=== PATIENT | female | born 1965 | race Caucasian/White ===

== ENCOUNTER 2024-03-07 06:23 | Day surgery (SDC) | payer MEDICAID ==
[~2024-03-07] VITALS: Ht 149.9 cm; Wt 64.1 kg
[2024-03-07] MEDS ORDERED: LIDOCAINE 2% 11 ML JELLY TP ONE (06:24)
[2024-03-07] MEDS ORDERED: LIDOCAINE 4% 50 ML SOLUTION TP ONE (06:24)
[2024-03-07] MEDS ORDERED: BENZOCAINE 20% 50 MCG/SPRAY 57 GM TP ONE (06:24)
[2024-03-07] MEDS ORDERED: HYDR200T38 PO (06:58)
[2024-03-07] MEDS ORDERED: DULO20CA71 PO (06:59)
[2024-03-07] MEDS ORDERED: FERR325T27 PO (06:59)
[2024-03-07] MEDS ORDERED: OMEG100014 PO (06:59)
[2024-03-07] MEDS ORDERED: FLUT16H NASAL (06:59)
[2024-03-07] MEDS ORDERED: OMEP40CA21 PO (06:59)
[2024-03-07] MEDS ORDERED: CELE200 PO (06:59)
[2024-03-07] MEDS ORDERED: MAGN500T11 PO (06:59)
[2024-03-07] MEDS ORDERED: SODIUM CHLORIDE 0.9% 0 ML ONE (07:18)
[2024-03-07] MEDS ORDERED: SODIUM CHLORIDE 0.9% 1,000 ML ONE (07:23)
[2024-03-07] MEDS ORDERED: MIDAZOLAM HCL 2 MG/2 ML VIAL ONE (08:06)
[2024-03-07] MEDS ORDERED: FentaNYL CITRATE PF 100 MCG/2 ML VIAL ONE (08:06)
[2024-03-07] MEDS: SODIUM CHLORIDE 0.9% 1,000 ML IV ONE (08:26)
[2024-03-07 09:30] VITALS: PULSE 65; RESP 18; O2SAT 100
[2024-03-07] MEDS ORDERED: MethylPREDNISolone SOD SUCC 125 MG/2 ML VIAL ONE (09:54)
[2024-03-07] MEDS: MethylPREDNISolone SOD SUCC 125 MG/2 ML VIAL IVP ONE (10:14)
== END 2024-03-07 12:15 | disposition home or self-care (01) ==
LOC: SURGERY 06:23
PROVIDERS: ATTEND Internal Medicine Critical Care Medicine
DX: R05.3 Chronic cough (principal); R06.2 Wheezing; R49.0 Dysphonia; R04.2 Hemoptysis; J38.4 Edema of larynx; B37.0 Candidal stomatitis; Z98.890 Other specified postprocedural states; Z88.0 Allergy status to penicillin; Z88.2 Allergy status to sulfonamides; Z88.5 Allergy status to narcotic agent; Z88.8 Allergy status to other drugs, medicaments and biological substances
CPT/HCPCS: 31623; 87206; 87101; 87220; 87070; 88108; 31624; 71045; 87015; J3010; J2250; J2919; J7030; Z7610